=== PATIENT | female | born 1950 | race Caucasian/White ===

== ENCOUNTER 2019-06-20 14:17 | Emergency (ER) | payer MEDICARE, OTHER ==
[~2019-06-20] VITALS: Ht 160 cm; Wt 77.3 kg
[~2019-06-20 14:17] MED LIST: ARIP10TA8 PO; DOCU-342 PO; DULO30CA2 PO; EXEM25 PO; RIVA20TA PO
[2019-06-20] MEDS ORDERED: GABA-531 PO (15:33)
[2019-06-20] MEDS ORDERED: ATOR40TA28 PO (15:33)
[2019-06-20 16:07] LABS: BASOPHILS % (AUTO) 0.4 % (0.0-2.0); EOSINOPHILS % (AUTO) 0.6 % (1.0-6.0); HEMATOCRIT 46.8 % (36-46); HEMOGLOBIN 15.5 g/dL (12.0-16.0); LYMPHOCYTES # (AUTO) 1.4 K/uL (1.0-4.8); LYMPHOCYTES % (AUTO) 20.3 % (22.0-44.0); MEAN CORPUSCULAR HEMOGLOBIN 30.2 pg (26.0-34.0); MEAN CORPUSCULAR HGB CONC 33.1 G/dL (31.0-37.0); MEAN CORPUSCULAR VOLUME 91 fL (80-100); MONOCYTES # (AUTO) 0.4 K/uL (0.1-1.0); MONOCYTES % (AUTO) 5.8 % (2.0-9.0); NEUTROPHILS # (AUTO) 5.1 K/uL (1.8-7.7); NEUTROPHILS % (AUTO) 72.9 % (40.0-70.0); PLATELET COUNT (AUTO) 305 K/uL (150-450); RED BLOOD CELL COUNT(AUTO) 5.13 MIL/uL (4.00-5.20)
[2019-06-20 16:14] LABS: ANION GAP 9 mmol/L (8-16); CALCIUM, TOTAL 9.3 mg/dL (8.8-10.5); CARBON DIOXIDE 27 mmol/L (22-29); CHLORIDE 103 mmol/L (98-107); CREATININE 0.79 mg/dL (0.60-1.30); GLOMERULAR FILTR. RATE CALC > 60 mL/min (>60); GLUCOSE,RANDOM 142 mg/dL (70-110); POTASSIUM 3.9 mmol/L (3.5-5.1); SODIUM SERUM 139 mmol/L (136-145); UREA NITROGEN, BLOOD 13 mg/dL (7-18)
[2019-06-20 16:20] LABS: ALANINE AMINOTRANSFERASE 35 U/L (12-78); ALKALINE PHOSPHATASE 118 U/L (46-116); ASPARTATE AMINOTRANSFERASE 19 U/L (15-37); BILIRUBIN,TOTAL 0.4 mg/dL (0.1-1.0); TOTAL PROTEIN, SERUM 7.9 g/dL (6.4-8.2)
[2019-06-20] MEDS ORDERED: ZOLPIDEM TARTRATE 5 MG TABLET PO PRN (18:30)
[2019-06-20] MEDS ORDERED: TUBERCULIN, PURIFIED PROTEIN DERIVATIVE 5 TU/0.1 ML SYRINGE ID ONE (18:30)
[2019-06-20] MEDS ORDERED: ZOLPIDEM TARTRATE 10 MG TABLET PO PRN (18:30)
[2019-06-20] MEDS ORDERED: PROMETHAZINE HCL 25 MG TABLET PO PRN (18:30)
[2019-06-20] MEDS ORDERED: MAGNESIUM HYDROXIDE SUSPENSION 30 ML UDCUP PO PRN (18:30)
[2019-06-20] MEDS ORDERED: GuaiFENesin/D-METHORPHAN [SUGAR-FREE] 200-20MG/10 ML SYRUP UDCUP PO PRN (18:30)
[2019-06-20] MEDS ORDERED: LOPERAMIDE HCL 2 MG CAPSULE PO PRN (18:30)
[2019-06-20] MEDS ORDERED: LORazepam 1 MG TABLET PO PRN (18:30)
[2019-06-20] MEDS ORDERED: ACETAMINOPHEN 325 MG TABLET PO PRN (18:30)
[2019-06-20] MEDS ORDERED: MAG HYDROX/AL HYDROX/SIMETH ES 30 ML SUSPENSION UDCUP PO PRN (18:30)
[2019-06-20] MEDS ORDERED: OLANZapine 5 MG RAPDIS TABLET PO PRN (18:30)
[2019-06-20] MEDS ORDERED: THIAMINE HCL 100 MG TABLET PO SCH (21:00)
[2019-06-20] MEDS ORDERED: PREGABALIN 25 MG CAPSULE PO SCH (21:00)
[2019-06-20] MEDS ORDERED: OLANZapine 5 MG RAPDIS TABLET PO SCH (21:00)
[2019-06-21 00:30] VITALS: BP 112/71
[2019-06-21] MEDS ORDERED: FOLIC ACID 1 MG TABLET PO SCH (09:00)
[2019-06-21] MEDS ORDERED: MULTIVITAMINS WITH MINERALS, THERAPEUTIC TABLET PO SCH (09:00)
[2019-06-21] MEDS ORDERED: DULoxetine HCL 20 MG CAPSULE PO SCH (09:00)
== END 2019-06-21 01:30 | disposition short-term general hospital (02) ==
LOC: EMS 14:23
DX: R45.851 Suicidal ideations (principal); J45.909 Unspecified asthma, uncomplicated; K21.9 Gastro-esophageal reflux disease without esophagitis; G43.909 Migraine, unspecified, not intractable, without status migrainosus; Z88.0 Allergy status to penicillin; Z88.1 Allergy status to other antibiotic agents; Z88.8 Allergy status to other drugs, medicaments and biological substances
CPT/HCPCS: 80053; 85025; 99285; G0480

== ENCOUNTER 2019-07-27 12:06 | Inpatient (IN) | payer MEDICARE, MEDICAID ==
[~2019-07-27] VITALS: Ht 160 cm; Wt 78.0 kg
[~2019-07-27 12:06] MED LIST changes: -ARIP10TA8 PO; +ATOR40TA28 PO; -DULO30CA2 PO; -EXEM25 PO; +GABA-1181 PO
[2019-07-27] MEDS ORDERED: TUBERCULIN, PURIFIED PROTEIN DERIVATIVE 5 TU/0.1 ML SYRINGE ID ONE (14:15)
[2019-07-27] MEDS ORDERED: HALOPERIDOL 5 MG TABLET PO PRN (14:15)
[2019-07-27 14:53] VITALS: BP 113/83
[2019-07-27 16:34] VITALS: BP 112/75
[2019-07-27] MEDS ORDERED: PNEUMOCOCCAL VACCINE POLYVALENT 0.5 ML VIAL [PPSV23] IM ONE (17:15)
[2019-07-27] MEDS: GABAPENTIN 300 MG CAPSULE PO SCH (20:02)
[2019-07-27] MEDS: ATORVASTATIN CALCIUM 40 MG TABLET PO SCH (20:02)
[2019-07-27] MEDS: ALBUTEROL SULFATE HFA 90 MCG/PUFF 8 GM INHALER IH PRN (20:10)
[2019-07-27] MEDS: ZOLPIDEM TARTRATE 10 MG TABLET PO PRN (21:43)
[2019-07-28 01:00] VITALS: BP 107/60
[2019-07-28] MEDS: GABAPENTIN 300 MG CAPSULE PO SCH ×2 (06:18→17:20)
[2019-07-28 08:26] VITALS: BP 101/61
[2019-07-28 08:29] LABS: BASOPHILS % (AUTO) 0.6 % (0.0-2.0); EOSINOPHILS % (AUTO) 3.1 % (1.0-6.0); HEMATOCRIT 40.5 % (36-46); HEMOGLOBIN 13.4 g/dL (12.0-16.0); LYMPHOCYTES # (AUTO) 1.5 K/uL (1.0-4.8); MEAN CORPUSCULAR HGB CONC 33.2 G/dL (31.0-37.0); MEAN CORPUSCULAR VOLUME 90 fL (80-100); MONOCYTES # (AUTO) 0.5 K/uL (0.1-1.0); MONOCYTES % (AUTO) 10.4 % (2.0-9.0); NEUTROPHILS # (AUTO) 2.8 K/uL (1.8-7.7); NEUTROPHILS % (AUTO) 55.9 % (40.0-70.0); PLATELET COUNT (AUTO) 291 K/uL (150-450); RED BLOOD CELL COUNT(AUTO) 4.48 MIL/uL (4.00-5.20)
[2019-07-28 08:35] LABS: INR 1.1 (0.9-1.1); PROTHROMBIN TIME 11.5 SEC (9.4-11.6)
[2019-07-28] MEDS: BACITRACIN 28.4 GM OINTMENT TP SCH ×2 (08:35→17:20)
[2019-07-28] MEDS: OMEPRAZOLE 20 MG CAPSULE PO SCH (08:36)
[2019-07-28] MEDS: DICLOFENAC SODIUM 1% 100 GM GEL [2GM] TP SCH ×2 (08:36→17:20)
[2019-07-28] MEDS: CETIRIZINE HCL 10 MG TABLET PO SCH (08:36)
[2019-07-28 09:08] LABS: ALANINE AMINOTRANSFERASE 32 U/L (12-78); ALBUMIN 3.2 g/dL (3.4-5.0); ALKALINE PHOSPHATASE 105 U/L (46-116); ANION GAP 10 mmol/L (8-16); ASPARTATE AMINOTRANSFERASE 17 U/L (15-37); BILIRUBIN,TOTAL 0.4 mg/dL (0.1-1.0); CALCIUM, TOTAL 8.5 mg/dL (8.8-10.5); CARBON DIOXIDE 25 mmol/L (22-29); CHLORIDE 105 mmol/L (98-107); CREATININE 0.78 mg/dL (0.60-1.30); GLOMERULAR FILTR. RATE CALC > 60 mL/min (>60); GLUCOSE,RANDOM 92 mg/dL (70-110); POTASSIUM 3.7 mmol/L (3.5-5.1); SODIUM SERUM 140 mmol/L (136-145); TOTAL PROTEIN, SERUM 6.4 g/dL (6.4-8.2); UREA NITROGEN, BLOOD 16 mg/dL (7-18)
[2019-07-28 09:47] LABS: HEMOGLOBIN A1C 5.9 % (3.8-5.6)
[2019-07-28] MEDS: ALBUTEROL SULFATE HFA 90 MCG/PUFF 8 GM INHALER IH PRN (12:34)
[2019-07-28] MEDS: LORazepam 2 MG TABLET PO PRN (12:46)
[2019-07-28] MEDS: ESCITALOPRAM OXALATE 10 MG TABLET PO SCH (13:52)
[2019-07-28] MEDS: CHOLECALCIFEROL (VIT D3) 400 UNITS [10 MCG] TABLET PO SCH (13:52)
[2019-07-28 17:20] VITALS: BP 104/61
[2019-07-28] MEDS: RIVAROXABAN 20 MG TABLET PO SCH (17:20)
[2019-07-28] MEDS: ATORVASTATIN CALCIUM 40 MG TABLET PO SCH (20:24)
[2019-07-29 00:54] VITALS: BP 108/69
[2019-07-29 08:19] VITALS: BP 119/55
[2019-07-29] MEDS: OMEPRAZOLE 20 MG CAPSULE PO SCH (08:22)
[2019-07-29] MEDS: CHOLECALCIFEROL (VIT D3) 400 UNITS [10 MCG] TABLET PO SCH (08:22)
[2019-07-29] MEDS: ESCITALOPRAM OXALATE 10 MG TABLET PO SCH (08:22)
[2019-07-29] MEDS: CETIRIZINE HCL 10 MG TABLET PO SCH (08:22)
[2019-07-29] MEDS: GABAPENTIN 300 MG CAPSULE PO SCH ×2 (08:22→16:43)
[2019-07-29] MEDS: DICLOFENAC SODIUM 1% 100 GM GEL [2GM] TP SCH ×2 (08:28→16:43)
[2019-07-29] MEDS: BACITRACIN 28.4 GM OINTMENT TP SCH ×2 (08:28→16:43)
[2019-07-29] MEDS: ALBUTEROL SULFATE HFA 90 MCG/PUFF 8 GM INHALER IH PRN (14:38)
[2019-07-29 16:00] VITALS: BP 109/58
[2019-07-29] MEDS: RIVAROXABAN 20 MG TABLET PO SCH (16:42)
[2019-07-29] MEDS: OLANZapine 5 MG TABLET PO SCH (16:47)
[2019-07-29] MEDS: ATORVASTATIN CALCIUM 40 MG TABLET PO SCH (20:13)
[2019-07-29] MEDS: ZOLPIDEM TARTRATE 10 MG TABLET PO PRN (22:48)
[2019-07-30 00:53] VITALS: BP 107/63
[2019-07-30] MEDS: OLANZapine 5 MG TABLET PO SCH ×3 (09:00→16:40)
[2019-07-30] MEDS: CETIRIZINE HCL 10 MG TABLET PO SCH (09:56)
[2019-07-30] MEDS: CHOLECALCIFEROL (VIT D3) 400 UNITS [10 MCG] TABLET PO SCH (09:56)
[2019-07-30] MEDS: ESCITALOPRAM OXALATE 10 MG TABLET PO SCH (09:56)
[2019-07-30] MEDS: OMEPRAZOLE 20 MG CAPSULE PO SCH (09:57)
[2019-07-30] MEDS: DICLOFENAC SODIUM 1% 100 GM GEL [2GM] TP SCH ×2 (09:57→16:41)
[2019-07-30] MEDS: GABAPENTIN 300 MG CAPSULE PO SCH ×2 (09:57→16:40)
[2019-07-30] MEDS: MULTIVITAMINS WITH MINERALS, THERAPEUTIC TABLET PO SCH (09:57)
[2019-07-30] MEDS: BACITRACIN 28.4 GM OINTMENT TP SCH ×2 (09:57→16:41)
[2019-07-30 10:56] VITALS: BP 107/64
[2019-07-30] MEDS: ALBUTEROL SULFATE HFA 90 MCG/PUFF 8 GM INHALER IH PRN (11:27)
[2019-07-30] MEDS: RIVAROXABAN 20 MG TABLET PO SCH (16:40)
[2019-07-30] MEDS: ATORVASTATIN CALCIUM 40 MG TABLET PO SCH (20:04)
[2019-07-31 07:17] VITALS: BP 100/60
[2019-07-31 08:44] LABS: CHOL/HDL RATIO 3.4 (3.9-5.7)
[2019-07-31] MEDS: CETIRIZINE HCL 10 MG TABLET PO SCH (09:20)
[2019-07-31] MEDS: GABAPENTIN 300 MG CAPSULE PO SCH ×2 (09:20→16:36)
[2019-07-31] MEDS: CHOLECALCIFEROL (VIT D3) 400 UNITS [10 MCG] TABLET PO SCH (09:20)
[2019-07-31] MEDS: MULTIVITAMINS WITH MINERALS, THERAPEUTIC TABLET PO SCH (09:20)
[2019-07-31] MEDS: OMEPRAZOLE 20 MG CAPSULE PO SCH (09:20)
[2019-07-31] MEDS: ESCITALOPRAM OXALATE 10 MG TABLET PO SCH (09:20)
[2019-07-31] MEDS: OLANZapine 5 MG TABLET PO SCH ×2 (09:20→16:36)
[2019-07-31] MEDS: BACITRACIN 28.4 GM OINTMENT TP SCH ×2 (09:21→16:37)
[2019-07-31] MEDS: DICLOFENAC SODIUM 1% 100 GM GEL [2GM] TP SCH ×2 (09:21→16:37)
[2019-07-31 12:40] VITALS: BP 98/59
[2019-07-31] MEDS: RIVAROXABAN 20 MG TABLET PO SCH (16:36)
[2019-07-31] MEDS: ALBUTEROL SULFATE HFA 90 MCG/PUFF 8 GM INHALER IH PRN (17:40)
[2019-07-31 17:41] VITALS: BP 97/58
[2019-07-31] MEDS: ATORVASTATIN CALCIUM 40 MG TABLET PO SCH (20:18)
[2019-08-01] MEDS: ALBUTEROL SULFATE HFA 90 MCG/PUFF 8 GM INHALER IH PRN (06:48)
[2019-08-01 08:34] VITALS: BP 107/60
[2019-08-01] MEDS: OLANZapine 5 MG TABLET PO SCH (08:52)
[2019-08-01] MEDS: OMEPRAZOLE 20 MG CAPSULE PO SCH (08:52)
[2019-08-01] MEDS: CHOLECALCIFEROL (VIT D3) 400 UNITS [10 MCG] TABLET PO SCH (08:52)
[2019-08-01] MEDS: ESCITALOPRAM OXALATE 10 MG TABLET PO SCH (08:52)
[2019-08-01] MEDS: MULTIVITAMINS WITH MINERALS, THERAPEUTIC TABLET PO SCH (08:52)
[2019-08-01] MEDS: GABAPENTIN 300 MG CAPSULE PO SCH ×2 (08:53→17:06)
[2019-08-01] MEDS: CETIRIZINE HCL 10 MG TABLET PO SCH (08:53)
[2019-08-01] MEDS: DICLOFENAC SODIUM 1% 100 GM GEL [2GM] TP SCH ×2 (08:59→17:00)
[2019-08-01] MEDS: BACITRACIN 28.4 GM OINTMENT TP SCH ×2 (08:59→17:00)
[2019-08-01] MEDS ORDERED: ESCITALOPRAM OXALATE 10 MG TABLET PO ONE (10:15)
[2019-08-01] MEDS: RIVAROXABAN 20 MG TABLET PO SCH (17:07)
[2019-08-01] MEDS: ATORVASTATIN CALCIUM 40 MG TABLET PO SCH (21:05)
[2019-08-01] MEDS: OLANZapine 10 MG TABLET PO SCH (21:05)
[2019-08-01] MEDS: ZOLPIDEM TARTRATE 10 MG TABLET PO PRN (21:17)
[2019-08-02 05:00] VITALS: BP 106/62
[2019-08-02 08:30] VITALS: BP 100/57
[2019-08-02] MEDS: GABAPENTIN 300 MG CAPSULE PO SCH ×2 (08:36→16:49)
[2019-08-02] MEDS: MULTIVITAMINS WITH MINERALS, THERAPEUTIC TABLET PO SCH (08:36)
[2019-08-02] MEDS: CHOLECALCIFEROL (VIT D3) 400 UNITS [10 MCG] TABLET PO SCH (08:37)
[2019-08-02] MEDS: OMEPRAZOLE 20 MG CAPSULE PO SCH (08:37)
[2019-08-02] MEDS: CETIRIZINE HCL 10 MG TABLET PO SCH (08:37)
[2019-08-02] MEDS: OLANZapine 5 MG TABLET PO SCH (08:37)
[2019-08-02] MEDS: ESCITALOPRAM OXALATE 10 MG TABLET PO SCH (08:37)
[2019-08-02] MEDS: DICLOFENAC SODIUM 1% 100 GM GEL [2GM] TP SCH ×2 (10:05→17:30)
[2019-08-02] MEDS: BACITRACIN 28.4 GM OINTMENT TP SCH ×2 (10:06→17:30)
[2019-08-02] MEDS: RIVAROXABAN 20 MG TABLET PO SCH (16:49)
[2019-08-02] MEDS: ALBUTEROL SULFATE HFA 90 MCG/PUFF 8 GM INHALER IH PRN (17:56)
[2019-08-02] MEDS: ATORVASTATIN CALCIUM 40 MG TABLET PO SCH (20:57)
[2019-08-02] MEDS: OLANZapine 10 MG TABLET PO SCH (21:00)
[2019-08-03 05:30] VITALS: BP 101/60
[2019-08-03] MEDS: CETIRIZINE HCL 10 MG TABLET PO SCH (08:59)
[2019-08-03] MEDS: GABAPENTIN 300 MG CAPSULE PO SCH ×2 (09:00→16:36)
[2019-08-03] MEDS: MULTIVITAMINS WITH MINERALS, THERAPEUTIC TABLET PO SCH (09:00)
[2019-08-03] MEDS: CHOLECALCIFEROL (VIT D3) 400 UNITS [10 MCG] TABLET PO SCH (09:00)
[2019-08-03] MEDS: OLANZapine 5 MG TABLET PO SCH (09:00)
[2019-08-03] MEDS: ESCITALOPRAM OXALATE 10 MG TABLET PO SCH (09:00)
[2019-08-03] MEDS: OMEPRAZOLE 20 MG CAPSULE PO SCH (09:00)
[2019-08-03] MEDS: BACITRACIN 28.4 GM OINTMENT TP SCH ×2 (09:01→16:39)
[2019-08-03] MEDS: DICLOFENAC SODIUM 1% 100 GM GEL [2GM] TP SCH ×2 (09:02→16:39)
[2019-08-03] MEDS ORDERED: LOPERAMIDE HCL 2 MG CAPSULE PO PRN (09:30)
[2019-08-03] MEDS: ALBUTEROL SULFATE HFA 90 MCG/PUFF 8 GM INHALER IH PRN ×2 (09:49→15:58)
[2019-08-03] MEDS ORDERED: ACETAMINOPHEN 325 MG TABLET PO PRN (10:15)
[2019-08-03] MEDS: RIVAROXABAN 20 MG TABLET PO SCH (16:36)
[2019-08-03 18:35] VITALS: BP 109/69
[2019-08-03] MEDS: LORazepam 2 MG TABLET PO PRN (18:35)
[2019-08-03] MEDS: ATORVASTATIN CALCIUM 40 MG TABLET PO SCH (20:29)
[2019-08-03] MEDS: OLANZapine 10 MG TABLET PO SCH (20:39)
[2019-08-03] MEDS: ZOLPIDEM TARTRATE 10 MG TABLET PO PRN (20:39)
[2019-08-04] MEDS: OLANZapine 5 MG TABLET PO SCH (09:01)
[2019-08-04] MEDS: GABAPENTIN 300 MG CAPSULE PO SCH ×2 (09:01→16:42)
[2019-08-04] MEDS: ESCITALOPRAM OXALATE 10 MG TABLET PO SCH (09:01)
[2019-08-04] MEDS: MULTIVITAMINS WITH MINERALS, THERAPEUTIC TABLET PO SCH (09:02)
[2019-08-04] MEDS: CHOLECALCIFEROL (VIT D3) 400 UNITS [10 MCG] TABLET PO SCH (09:02)
[2019-08-04] MEDS: OMEPRAZOLE 20 MG CAPSULE PO SCH (09:02)
[2019-08-04] MEDS: CETIRIZINE HCL 10 MG TABLET PO SCH (09:03)
[2019-08-04] MEDS: BACITRACIN 28.4 GM OINTMENT TP SCH ×2 (09:05→16:42)
[2019-08-04] MEDS: DICLOFENAC SODIUM 1% 100 GM GEL [2GM] TP SCH ×2 (09:05→16:42)
[2019-08-04] MEDS: RIVAROXABAN 20 MG TABLET PO SCH (16:42)
[2019-08-04] MEDS: OLANZapine 10 MG TABLET PO SCH (21:10)
[2019-08-04] MEDS: ATORVASTATIN CALCIUM 40 MG TABLET PO SCH (21:10)
[2019-08-04] MEDS ORDERED: SIMETHICONE 80 MG CHEWABLE TABLET CHEW PRN (21:30)
[2019-08-04] MEDS: ALBUTEROL SULFATE HFA 90 MCG/PUFF 8 GM INHALER IH PRN (22:45)
[2019-08-05] MEDS: BACITRACIN 28.4 GM OINTMENT TP SCH ×2 (09:49→17:14)
[2019-08-05] MEDS: CETIRIZINE HCL 10 MG TABLET PO SCH (09:49)
[2019-08-05] MEDS: OLANZapine 5 MG TABLET PO SCH (09:49)
[2019-08-05] MEDS: ESCITALOPRAM OXALATE 10 MG TABLET PO SCH (09:49)
[2019-08-05] MEDS: MULTIVITAMINS WITH MINERALS, THERAPEUTIC TABLET PO SCH (09:49)
[2019-08-05] MEDS: OMEPRAZOLE 20 MG CAPSULE PO SCH (09:49)
[2019-08-05] MEDS: GABAPENTIN 300 MG CAPSULE PO SCH ×2 (09:49→16:34)
[2019-08-05] MEDS: CHOLECALCIFEROL (VIT D3) 400 UNITS [10 MCG] TABLET PO SCH (09:49)
[2019-08-05] MEDS: DICLOFENAC SODIUM 1% 100 GM GEL [2GM] TP SCH ×2 (09:50→17:14)
[2019-08-05] MEDS: ALBUTEROL SULFATE HFA 90 MCG/PUFF 8 GM INHALER IH PRN ×2 (12:06→17:44)
[2019-08-05] MEDS: RIVAROXABAN 20 MG TABLET PO SCH (16:33)
[2019-08-05] MEDS: OLANZapine 10 MG TABLET PO SCH (20:16)
[2019-08-05] MEDS: ATORVASTATIN CALCIUM 40 MG TABLET PO SCH (20:16)
[2019-08-06] MEDS: ZOLPIDEM TARTRATE 10 MG TABLET PO PRN (00:09)
[2019-08-06 01:57] VITALS: BP 102/67
[2019-08-06] MEDS: LORazepam 2 MG TABLET PO PRN (01:59)
[2019-08-06 08:46] VITALS: BP 119/56
[2019-08-06] MEDS: CETIRIZINE HCL 10 MG TABLET PO SCH (09:55)
[2019-08-06] MEDS: OMEPRAZOLE 20 MG CAPSULE PO SCH (09:56)
[2019-08-06] MEDS: CHOLECALCIFEROL (VIT D3) 400 UNITS [10 MCG] TABLET PO SCH (09:56)
[2019-08-06] MEDS: OLANZapine 5 MG TABLET PO SCH (09:56)
[2019-08-06] MEDS: GABAPENTIN 300 MG CAPSULE PO SCH ×2 (09:56→16:56)
[2019-08-06] MEDS: ESCITALOPRAM OXALATE 10 MG TABLET PO SCH (09:56)
[2019-08-06] MEDS: MULTIVITAMINS WITH MINERALS, THERAPEUTIC TABLET PO SCH (09:56)
[2019-08-06] MEDS: BACITRACIN 28.4 GM OINTMENT TP SCH ×2 (09:57→17:05)
[2019-08-06] MEDS: DICLOFENAC SODIUM 1% 100 GM GEL [2GM] TP SCH ×2 (09:57→17:06)
[2019-08-06] MEDS: RIVAROXABAN 20 MG TABLET PO SCH (16:56)
[2019-08-06 17:10] VITALS: BP 117/69
[2019-08-06] MEDS: OLANZapine 10 MG TABLET PO SCH (20:12)
[2019-08-06] MEDS: ATORVASTATIN CALCIUM 40 MG TABLET PO SCH (20:12)
[2019-08-07 06:07] VITALS: BP 126/79
[2019-08-07] MEDS: ALBUTEROL SULFATE HFA 90 MCG/PUFF 8 GM INHALER IH PRN ×2 (06:46→14:39)
[2019-08-07] MEDS: MULTIVITAMINS WITH MINERALS, THERAPEUTIC TABLET PO SCH (08:14)
[2019-08-07] MEDS: GABAPENTIN 300 MG CAPSULE PO SCH ×2 (08:15→16:18)
[2019-08-07] MEDS: CETIRIZINE HCL 10 MG TABLET PO SCH (08:15)
[2019-08-07] MEDS: CHOLECALCIFEROL (VIT D3) 400 UNITS [10 MCG] TABLET PO SCH (08:15)
[2019-08-07] MEDS: ESCITALOPRAM OXALATE 10 MG TABLET PO SCH (08:15)
[2019-08-07] MEDS: OMEPRAZOLE 20 MG CAPSULE PO SCH (08:15)
[2019-08-07] MEDS: OLANZapine 5 MG TABLET PO SCH (08:15)
[2019-08-07] MEDS: DICLOFENAC SODIUM 1% 100 GM GEL [2GM] TP SCH ×2 (08:17→16:19)
[2019-08-07] MEDS: RIVAROXABAN 20 MG TABLET PO SCH (16:18)
[2019-08-07] MEDS: LORazepam 2 MG TABLET PO PRN (17:50)
[2019-08-07] MEDS: ATORVASTATIN CALCIUM 40 MG TABLET PO SCH (20:05)
[2019-08-07] MEDS: OLANZapine 10 MG TABLET PO SCH (20:05)
[2019-08-08 02:21] VITALS: BP 120/77
[2019-08-08] MEDS: LORazepam 2 MG TABLET PO PRN (02:23)
[2019-08-08] MEDS: GABAPENTIN 300 MG CAPSULE PO SCH ×2 (09:07→17:18)
[2019-08-08] MEDS: MULTIVITAMINS WITH MINERALS, THERAPEUTIC TABLET PO SCH (09:07)
[2019-08-08] MEDS: OMEPRAZOLE 20 MG CAPSULE PO SCH (09:07)
[2019-08-08] MEDS: OLANZapine 5 MG TABLET PO SCH (09:07)
[2019-08-08] MEDS: CETIRIZINE HCL 10 MG TABLET PO SCH (09:07)
[2019-08-08] MEDS: ESCITALOPRAM OXALATE 10 MG TABLET PO SCH (09:07)
[2019-08-08] MEDS: DICLOFENAC SODIUM 1% 100 GM GEL [2GM] TP SCH ×2 (09:08→17:19)
[2019-08-08] MEDS: CHOLECALCIFEROL (VIT D3) 400 UNITS [10 MCG] TABLET PO SCH (09:10)
[2019-08-08] MEDS: ALBUTEROL SULFATE HFA 90 MCG/PUFF 8 GM INHALER IH PRN ×2 (14:41→20:28)
[2019-08-08 16:21] VITALS: BP 124/72
[2019-08-08] MEDS: RIVAROXABAN 20 MG TABLET PO SCH (17:18)
[2019-08-08] MEDS: OLANZapine 10 MG TABLET PO SCH (20:28)
[2019-08-08] MEDS: ATORVASTATIN CALCIUM 40 MG TABLET PO SCH (20:29)
[2019-08-09 00:24] VITALS: BP 127/76
[2019-08-09] MEDS: MULTIVITAMINS WITH MINERALS, THERAPEUTIC TABLET PO SCH (08:35)
[2019-08-09] MEDS: GABAPENTIN 300 MG CAPSULE PO SCH ×2 (08:35→16:31)
[2019-08-09] MEDS: ESCITALOPRAM OXALATE 10 MG TABLET PO SCH (08:35)
[2019-08-09] MEDS: CETIRIZINE HCL 10 MG TABLET PO SCH (08:36)
[2019-08-09] MEDS: OMEPRAZOLE 20 MG CAPSULE PO SCH (08:36)
[2019-08-09] MEDS: CHOLECALCIFEROL (VIT D3) 400 UNITS [10 MCG] TABLET PO SCH (08:37)
[2019-08-09] MEDS: DICLOFENAC SODIUM 1% 100 GM GEL [2GM] TP SCH ×2 (08:37→18:13)
[2019-08-09] MEDS: OLANZapine 5 MG TABLET PO SCH (08:40)
[2019-08-09] MEDS: ALBUTEROL SULFATE HFA 90 MCG/PUFF 8 GM INHALER IH PRN ×2 (09:42→21:18)
[2019-08-09] MEDS: RIVAROXABAN 20 MG TABLET PO SCH (16:31)
[2019-08-09 16:57] VITALS: BP 100/64
[2019-08-09] MEDS: ATORVASTATIN CALCIUM 40 MG TABLET PO SCH (20:43)
[2019-08-09] MEDS: OLANZapine 10 MG TABLET PO SCH (20:43)
[2019-08-09] MEDS: LORazepam 2 MG TABLET PO PRN (20:53)
[2019-08-10] MEDS: OMEPRAZOLE 20 MG CAPSULE PO SCH (08:57)
[2019-08-10] MEDS: GABAPENTIN 300 MG CAPSULE PO SCH (08:58)
[2019-08-10] MEDS: ESCITALOPRAM OXALATE 10 MG TABLET PO SCH (08:58)
[2019-08-10] MEDS: MULTIVITAMINS WITH MINERALS, THERAPEUTIC TABLET PO SCH (08:58)
[2019-08-10] MEDS: CHOLECALCIFEROL (VIT D3) 400 UNITS [10 MCG] TABLET PO SCH (08:58)
[2019-08-10] MEDS: CETIRIZINE HCL 10 MG TABLET PO SCH (08:58)
[2019-08-10] MEDS: OLANZapine 5 MG TABLET PO SCH (08:58)
[2019-08-10] MEDS: DICLOFENAC SODIUM 1% 100 GM GEL [2GM] TP SCH (08:59)
[2019-08-10 09:06] VITALS: BP 106/64
[2019-08-10] MEDS ORDERED: ESCI20TA87 PO (11:45)
[2019-08-10] MEDS ORDERED: OLAN5TAB2 PO ×2 (11:45)
[2019-08-10] MEDS ORDERED: GABA-1181 PO (11:46)
[2019-08-10] MEDS ORDERED: ATOR40TA28 PO (11:51)
[2019-08-10] MEDS ORDERED: CETI-450 PO (11:51)
[2019-08-10] MEDS ORDERED: CHOL400T56 PO (13:11)
[2019-08-10] MEDS ORDERED: OMEP20 PO (13:11)
== END 2019-08-10 18:28 | disposition home or self-care (01) | DRG 751 ==
LOC: B2S 14:51
PROVIDERS: ADMIT Psychiatry & Neurology Psychiatry; ATTEND Psychiatry & Neurology Psychiatry
DX: F33.2 Major depressive disorder, recurrent severe without psychotic features (principal); R45.851 Suicidal ideations; J44.9 Chronic obstructive pulmonary disease, unspecified; E78.5 Hyperlipidemia, unspecified; G43.909 Migraine, unspecified, not intractable, without status migrainosus; K21.9 Gastro-esophageal reflux disease without esophagitis; M19.90 Unspecified osteoarthritis, unspecified site; M54.30 Sciatica, unspecified side; M54.9 Dorsalgia, unspecified; R63.0 Anorexia; I25.10 Atherosclerotic heart disease of native coronary artery without angina pectoris; Z86.711 Personal history of pulmonary embolism; Z86.718 Personal history of other venous thrombosis and embolism; Z59.0 Homelessness; Z79.899 Other long term (current) drug therapy; Z85.3 Personal history of malignant neoplasm of breast; Z88.0 Allergy status to penicillin; Z90.11 Acquired absence of right breast and nipple; Z91.5 Personal history of self-harm; Z88.8 Allergy status to other drugs, medicaments and biological substances; Z88.1 Allergy status to other antibiotic agents
CPT/HCPCS: 83036; 83735; G0480; J3535

== ENCOUNTER 2019-08-18 00:15 | Inpatient (IN) | payer MEDICARE, MEDICAID ==
[~2019-08-18] VITALS: Ht 160 cm; Wt 80.2 kg
[~2019-08-18 00:15] MED LIST changes: +CETI-450 PO; +CHOL400T56 PO; -DOCU-342 PO; +ESCI20TA87 PO; +OLAN5TAB2 PO; +OMEP20 PO
[2019-08-18 00:56] LABS: BASOPHILS % (AUTO) 0.7 % (0.0-2.0); HEMATOCRIT 38.7 % (36-46); HEMOGLOBIN 13.4 g/dL (12.0-16.0); LYMPHOCYTES # (AUTO) 1.6 K/uL (1.0-4.8); LYMPHOCYTES % (AUTO) 20.4 % (22.0-44.0); MEAN CORPUSCULAR HEMOGLOBIN 31.2 pg (26.0-34.0); MEAN CORPUSCULAR HGB CONC 34.6 G/dL (31.0-37.0); MEAN CORPUSCULAR VOLUME 90 fL (80-100); MONOCYTES # (AUTO) 0.6 K/uL (0.1-1.0); MONOCYTES % (AUTO) 7.7 % (2.0-9.0); NEUTROPHILS # (AUTO) 5.4 K/uL (1.8-7.7); NEUTROPHILS % (AUTO) 69.2 % (40.0-70.0); PLATELET COUNT (AUTO) 298 K/uL (150-450); RED BLOOD CELL COUNT(AUTO) 4.29 MIL/uL (4.00-5.20); RED CELL DISTRIBUTION WIDTH 14.1 % (11.5-14.5)
[2019-08-18 01:07] LABS: ALANINE AMINOTRANSFERASE 60 U/L (12-78); ALBUMIN 3.6 g/dL (3.4-5.0); ALKALINE PHOSPHATASE 116 U/L (46-116); ANION GAP 12 mmol/L (8-16); ASPARTATE AMINOTRANSFERASE 28 U/L (15-37); BILIRUBIN,TOTAL 0.3 mg/dL (0.1-1.0); CALCIUM, TOTAL 8.3 mg/dL (8.8-10.5); CARBON DIOXIDE 21 mmol/L (22-29); CHLORIDE 106 mmol/L (98-107); CREATININE 0.64 mg/dL (0.60-1.30); GLOMERULAR FILTR. RATE CALC > 60 mL/min (>60); GLUCOSE,RANDOM 111 mg/dL (70-110); POTASSIUM 3.6 mmol/L (3.5-5.1); SODIUM SERUM 139 mmol/L (136-145); TOTAL PROTEIN, SERUM 7.2 g/dL (6.4-8.2)
[2019-08-18 01:13] LABS: UREA NITROGEN, BLOOD 18 mg/dL (7-18)
[2019-08-18] MEDS ORDERED: ZOLPIDEM TARTRATE 10 MG TABLET PO PRN (02:30)
[2019-08-18 05:44] VITALS: BP 138/70
[2019-08-18] MEDS ORDERED: PNEUMOCOCCAL VACCINE POLYVALENT 0.5 ML VIAL [PPSV23] IM ONE (06:30)
[2019-08-18] MEDS: LORazepam 2 MG TABLET PO PRN (10:06)
[2019-08-18] MEDS: OLANZapine 10 MG TABLET PO SCH ×2 (13:59→20:40)
[2019-08-18 16:26] VITALS: BP 101/57
[2019-08-18] MEDS: DICLOFENAC SODIUM 1% 100 GM GEL [4GM] TP SCH (17:12)
[2019-08-18] MEDS: GABAPENTIN 300 MG CAPSULE PO SCH (17:12)
[2019-08-18] MEDS: RIVAROXABAN 20 MG TABLET PO SCH (17:12)
[2019-08-18] MEDS: ATORVASTATIN CALCIUM 40 MG TABLET PO SCH (20:40)
[2019-08-19 04:04] VITALS: BP 130/77
[2019-08-19 08:18] VITALS: BP 125/70
[2019-08-19] MEDS: GABAPENTIN 300 MG CAPSULE PO SCH ×2 (08:26→17:06)
[2019-08-19] MEDS: CETIRIZINE HCL 10 MG TABLET PO SCH (08:26)
[2019-08-19] MEDS: ESCITALOPRAM OXALATE 20 MG TABLET PO SCH (08:26)
[2019-08-19] MEDS: MULTIVITAMINS, THERAPEUTIC TABLET PO SCH (08:26)
[2019-08-19] MEDS: OLANZapine 10 MG TABLET PO SCH ×2 (08:26→20:16)
[2019-08-19] MEDS: OMEPRAZOLE 20 MG CAPSULE PO SCH (08:26)
[2019-08-19] MEDS: CHOLECALCIFEROL (VIT D3) 400 UNITS [10 MCG] TABLET PO SCH (08:26)
[2019-08-19] MEDS: DICLOFENAC SODIUM 1% 100 GM GEL [4GM] TP SCH ×2 (08:27→17:06)
[2019-08-19 16:07] VITALS: BP 109/67
[2019-08-19] MEDS: ALBUTEROL SULFATE HFA 90 MCG/PUFF 8 GM INHALER IH PRN (16:35)
[2019-08-19] MEDS: RIVAROXABAN 20 MG TABLET PO SCH (17:06)
[2019-08-19] MEDS: ATORVASTATIN CALCIUM 40 MG TABLET PO SCH (20:16)
[2019-08-20 01:40] VITALS: BP 129/68
[2019-08-20] MEDS: CETIRIZINE HCL 10 MG TABLET PO SCH (08:25)
[2019-08-20] MEDS: ESCITALOPRAM OXALATE 20 MG TABLET PO SCH (08:26)
[2019-08-20] MEDS: GABAPENTIN 300 MG CAPSULE PO SCH ×2 (08:26→17:07)
[2019-08-20] MEDS: MULTIVITAMINS, THERAPEUTIC TABLET PO SCH (08:26)
[2019-08-20] MEDS: OMEPRAZOLE 20 MG CAPSULE PO SCH (08:26)
[2019-08-20] MEDS: DICLOFENAC SODIUM 1% 100 GM GEL [4GM] TP SCH ×2 (08:26→17:07)
[2019-08-20] MEDS: CHOLECALCIFEROL (VIT D3) 400 UNITS [10 MCG] TABLET PO SCH (08:26)
[2019-08-20] MEDS: OLANZapine 10 MG TABLET PO SCH ×2 (08:26→20:12)
[2019-08-20 10:12] VITALS: BP 112/55
[2019-08-20] MEDS: RIVAROXABAN 20 MG TABLET PO SCH (17:07)
[2019-08-20] MEDS: ATORVASTATIN CALCIUM 40 MG TABLET PO SCH (20:12)
[2019-08-21 06:03] VITALS: BP 116/62
[2019-08-21] MEDS: CHOLECALCIFEROL (VIT D3) 400 UNITS [10 MCG] TABLET PO SCH (08:09)
[2019-08-21] MEDS: CETIRIZINE HCL 10 MG TABLET PO SCH (08:09)
[2019-08-21] MEDS: ESCITALOPRAM OXALATE 20 MG TABLET PO SCH (08:10)
[2019-08-21] MEDS: OLANZapine 10 MG TABLET PO SCH ×2 (08:10→20:15)
[2019-08-21] MEDS: OMEPRAZOLE 20 MG CAPSULE PO SCH (08:10)
[2019-08-21] MEDS: MULTIVITAMINS, THERAPEUTIC TABLET PO SCH (08:10)
[2019-08-21] MEDS: GABAPENTIN 300 MG CAPSULE PO SCH ×2 (08:12→17:07)
[2019-08-21] MEDS: DICLOFENAC SODIUM 1% 100 GM GEL [4GM] TP SCH ×2 (08:13→20:15)
[2019-08-21] MEDS: ALBUTEROL SULFATE HFA 90 MCG/PUFF 8 GM INHALER IH PRN (08:13)
[2019-08-21] MEDS ORDERED: DICLOFENAC SODIUM 1% 100 GM GEL [4GM] TP SCH (09:00)
[2019-08-21] MEDS: RIVAROXABAN 20 MG TABLET PO SCH (17:07)
[2019-08-21] MEDS: ATORVASTATIN CALCIUM 40 MG TABLET PO SCH (20:15)
[2019-08-22 00:18] VITALS: BP 123/72
[2019-08-22] MEDS: MULTIVITAMINS, THERAPEUTIC TABLET PO SCH (08:26)
[2019-08-22] MEDS: GABAPENTIN 300 MG CAPSULE PO SCH ×2 (08:26→16:45)
[2019-08-22] MEDS: OMEPRAZOLE 20 MG CAPSULE PO SCH (08:26)
[2019-08-22] MEDS: CETIRIZINE HCL 10 MG TABLET PO SCH (08:26)
[2019-08-22] MEDS: OLANZapine 10 MG TABLET PO SCH ×2 (08:26→20:10)
[2019-08-22] MEDS: ALBUTEROL SULFATE HFA 90 MCG/PUFF 8 GM INHALER IH PRN ×2 (08:55→15:17)
[2019-08-22] MEDS: DICLOFENAC SODIUM 1% 100 GM GEL [4GM] TP SCH ×2 (09:16→20:10)
[2019-08-22] MEDS: CHOLECALCIFEROL (VIT D3) 400 UNITS [10 MCG] TABLET PO SCH (09:16)
[2019-08-22] MEDS: ESCITALOPRAM OXALATE 20 MG TABLET PO SCH (09:27)
[2019-08-22 16:43] VITALS: BP 98/57
[2019-08-22] MEDS: RIVAROXABAN 20 MG TABLET PO SCH (16:45)
[2019-08-22] MEDS: BACITRACIN 28.4 GM OINTMENT TP SCH (16:54)
[2019-08-22] MEDS: ATORVASTATIN CALCIUM 40 MG TABLET PO SCH (20:10)
[2019-08-23 08:16] VITALS: BP 116/70
[2019-08-23] MEDS: CHOLECALCIFEROL (VIT D3) 400 UNITS [10 MCG] TABLET PO SCH (08:45)
[2019-08-23] MEDS: OLANZapine 10 MG TABLET PO SCH ×2 (08:45→20:55)
[2019-08-23] MEDS: CETIRIZINE HCL 10 MG TABLET PO SCH (08:45)
[2019-08-23] MEDS: MULTIVITAMINS, THERAPEUTIC TABLET PO SCH (08:45)
[2019-08-23] MEDS: ESCITALOPRAM OXALATE 20 MG TABLET PO SCH (08:45)
[2019-08-23] MEDS: DICLOFENAC SODIUM 1% 100 GM GEL [4GM] TP SCH ×2 (08:46→20:54)
[2019-08-23] MEDS: GABAPENTIN 300 MG CAPSULE PO SCH ×2 (08:46→16:54)
[2019-08-23] MEDS: OMEPRAZOLE 20 MG CAPSULE PO SCH (08:46)
[2019-08-23] MEDS: BACITRACIN 28.4 GM OINTMENT TP SCH ×2 (08:49→16:54)
[2019-08-23] MEDS: RIVAROXABAN 20 MG TABLET PO SCH (16:54)
[2019-08-23] MEDS: ALBUTEROL SULFATE HFA 90 MCG/PUFF 8 GM INHALER IH PRN (18:38)
[2019-08-23] MEDS: ATORVASTATIN CALCIUM 40 MG TABLET PO SCH (20:54)
[2019-08-24] MEDS: ALBUTEROL SULFATE HFA 90 MCG/PUFF 8 GM INHALER IH PRN ×3 (05:45→17:36)
[2019-08-24 06:46] VITALS: BP 120/84
[2019-08-24] MEDS: CHOLECALCIFEROL (VIT D3) 400 UNITS [10 MCG] TABLET PO SCH (08:10)
[2019-08-24] MEDS: ESCITALOPRAM OXALATE 20 MG TABLET PO SCH (08:10)
[2019-08-24] MEDS: GABAPENTIN 300 MG CAPSULE PO SCH ×2 (08:10→16:35)
[2019-08-24] MEDS: OMEPRAZOLE 20 MG CAPSULE PO SCH (08:10)
[2019-08-24] MEDS: MULTIVITAMINS, THERAPEUTIC TABLET PO SCH (08:10)
[2019-08-24] MEDS: BACITRACIN 28.4 GM OINTMENT TP SCH ×2 (08:11→17:52)
[2019-08-24] MEDS: DICLOFENAC SODIUM 1% 100 GM GEL [4GM] TP SCH ×2 (08:12→20:35)
[2019-08-24 08:18] VITALS: BP 117/68
[2019-08-24] MEDS: CETIRIZINE HCL 10 MG TABLET PO SCH (08:27)
[2019-08-24] MEDS: OLANZapine 10 MG TABLET PO SCH (08:27)
[2019-08-24 16:09] VITALS: BP 106/69
[2019-08-24] MEDS: RIVAROXABAN 20 MG TABLET PO SCH (16:35)
[2019-08-24] MEDS: ATORVASTATIN CALCIUM 40 MG TABLET PO SCH (20:35)
[2019-08-24] MEDS: OLANZapine 5 MG TABLET PO SCH (20:35)
[2019-08-25 01:07] VITALS: BP 141/79
[2019-08-25] MEDS: CHOLECALCIFEROL (VIT D3) 400 UNITS [10 MCG] TABLET PO SCH (08:19)
[2019-08-25] MEDS: CETIRIZINE HCL 10 MG TABLET PO SCH (08:19)
[2019-08-25] MEDS: ESCITALOPRAM OXALATE 20 MG TABLET PO SCH (08:19)
[2019-08-25] MEDS: OMEPRAZOLE 20 MG CAPSULE PO SCH (08:19)
[2019-08-25] MEDS: MULTIVITAMINS, THERAPEUTIC TABLET PO SCH (08:19)
[2019-08-25] MEDS: GABAPENTIN 300 MG CAPSULE PO SCH ×2 (08:19→16:35)
[2019-08-25] MEDS: OLANZapine 5 MG TABLET PO SCH ×2 (08:29→20:52)
[2019-08-25] MEDS: BACITRACIN 28.4 GM OINTMENT TP SCH ×2 (08:29→17:59)
[2019-08-25] MEDS: DICLOFENAC SODIUM 1% 100 GM GEL [4GM] TP SCH ×2 (08:29→20:58)
[2019-08-25] MEDS: ALBUTEROL SULFATE HFA 90 MCG/PUFF 8 GM INHALER IH PRN (08:38)
[2019-08-25 16:29] VITALS: BP 105/71
[2019-08-25] MEDS: RIVAROXABAN 20 MG TABLET PO SCH (16:35)
[2019-08-25] MEDS: ATORVASTATIN CALCIUM 40 MG TABLET PO SCH (20:52)
[2019-08-25] MEDS: LORazepam 2 MG TABLET PO PRN (22:46)
[2019-08-26 00:07] VITALS: BP 110/80
[2019-08-26] MEDS: MULTIVITAMINS, THERAPEUTIC TABLET PO SCH (08:07)
[2019-08-26] MEDS: OMEPRAZOLE 20 MG CAPSULE PO SCH (08:07)
[2019-08-26] MEDS: OLANZapine 5 MG TABLET PO SCH (08:07)
[2019-08-26] MEDS: DICLOFENAC SODIUM 1% 100 GM GEL [4GM] TP SCH ×2 (08:07→21:06)
[2019-08-26] MEDS: BACITRACIN 28.4 GM OINTMENT TP SCH ×2 (08:07→17:06)
[2019-08-26] MEDS: CHOLECALCIFEROL (VIT D3) 400 UNITS [10 MCG] TABLET PO SCH (08:07)
[2019-08-26] MEDS: ESCITALOPRAM OXALATE 20 MG TABLET PO SCH (08:07)
[2019-08-26] MEDS: CETIRIZINE HCL 10 MG TABLET PO SCH (08:07)
[2019-08-26] MEDS: GABAPENTIN 300 MG CAPSULE PO SCH ×2 (08:07→17:06)
[2019-08-26 09:00] VITALS: BP 102/55
[2019-08-26] MEDS: ALBUTEROL SULFATE HFA 90 MCG/PUFF 8 GM INHALER IH PRN (15:07)
[2019-08-26] MEDS: LORazepam 2 MG TABLET PO PRN (16:01)
[2019-08-26 16:45] VITALS: BP 98/61
[2019-08-26] MEDS: RIVAROXABAN 20 MG TABLET PO SCH (17:07)
[2019-08-26] MEDS: OLANZapine 10 MG TABLET PO SCH (21:04)
[2019-08-26] MEDS: ATORVASTATIN CALCIUM 40 MG TABLET PO SCH (21:04)
[2019-08-27] MEDS: CHOLECALCIFEROL (VIT D3) 400 UNITS [10 MCG] TABLET PO SCH (08:05)
[2019-08-27] MEDS: CETIRIZINE HCL 10 MG TABLET PO SCH (08:05)
[2019-08-27] MEDS: ESCITALOPRAM OXALATE 20 MG TABLET PO SCH (08:05)
[2019-08-27] MEDS: BACITRACIN 28.4 GM OINTMENT TP SCH ×2 (08:06→17:00)
[2019-08-27] MEDS: GABAPENTIN 300 MG CAPSULE PO SCH ×2 (08:06→17:03)
[2019-08-27] MEDS: OMEPRAZOLE 20 MG CAPSULE PO SCH (08:06)
[2019-08-27] MEDS: DICLOFENAC SODIUM 1% 100 GM GEL [4GM] TP SCH ×2 (08:06→20:20)
[2019-08-27] MEDS: MULTIVITAMINS, THERAPEUTIC TABLET PO SCH (08:06)
[2019-08-27] MEDS: ALBUTEROL SULFATE HFA 90 MCG/PUFF 8 GM INHALER IH PRN ×2 (08:11→17:10)
[2019-08-27] MEDS: LORazepam 2 MG TABLET PO PRN (09:23)
[2019-08-27 09:29] VITALS: BP 113/68
[2019-08-27] MEDS ORDERED: LOPERAMIDE HCL 2 MG CAPSULE PO PRN (14:00)
[2019-08-27 16:00] VITALS: BP 118/70
[2019-08-27] MEDS: RIVAROXABAN 20 MG TABLET PO SCH (17:03)
[2019-08-27] MEDS: ATORVASTATIN CALCIUM 40 MG TABLET PO SCH (20:16)
[2019-08-27] MEDS: OLANZapine 10 MG TABLET PO SCH (20:16)
[2019-08-28 01:03] VITALS: BP 102/64
[2019-08-28] MEDS: CHOLECALCIFEROL (VIT D3) 400 UNITS [10 MCG] TABLET PO SCH (08:17)
[2019-08-28] MEDS: CETIRIZINE HCL 10 MG TABLET PO SCH (08:17)
[2019-08-28] MEDS: OMEPRAZOLE 20 MG CAPSULE PO SCH (08:18)
[2019-08-28] MEDS: ESCITALOPRAM OXALATE 20 MG TABLET PO SCH (08:18)
[2019-08-28] MEDS: MULTIVITAMINS, THERAPEUTIC TABLET PO SCH (08:18)
[2019-08-28] MEDS: DICLOFENAC SODIUM 1% 100 GM GEL [4GM] TP SCH ×2 (08:18→20:05)
[2019-08-28] MEDS: GABAPENTIN 300 MG CAPSULE PO SCH ×2 (08:18→17:11)
[2019-08-28] MEDS: BACITRACIN 28.4 GM OINTMENT TP SCH ×2 (08:24→17:15)
[2019-08-28 08:35] VITALS: BP 102/62
[2019-08-28] MEDS: ALBUTEROL SULFATE HFA 90 MCG/PUFF 8 GM INHALER IH PRN ×4 (08:41→22:16)
[2019-08-28 16:27] VITALS: BP 104/59
[2019-08-28] MEDS: RIVAROXABAN 20 MG TABLET PO SCH (17:11)
[2019-08-28] MEDS: ATORVASTATIN CALCIUM 40 MG TABLET PO SCH (20:05)
[2019-08-28] MEDS: OLANZapine 10 MG TABLET PO SCH (20:05)
[2019-08-29 01:04] VITALS: BP 114/62
[2019-08-29] MEDS: OMEPRAZOLE 20 MG CAPSULE PO SCH (08:05)
[2019-08-29] MEDS: CETIRIZINE HCL 10 MG TABLET PO SCH (08:05)
[2019-08-29] MEDS: GABAPENTIN 300 MG CAPSULE PO SCH ×2 (08:06→16:47)
[2019-08-29] MEDS: DICLOFENAC SODIUM 1% 100 GM GEL [4GM] TP SCH ×2 (08:06→20:34)
[2019-08-29] MEDS: ESCITALOPRAM OXALATE 20 MG TABLET PO SCH (08:06)
[2019-08-29] MEDS: MULTIVITAMINS, THERAPEUTIC TABLET PO SCH (08:06)
[2019-08-29] MEDS: CHOLECALCIFEROL (VIT D3) 400 UNITS [10 MCG] TABLET PO SCH (08:06)
[2019-08-29] MEDS: BACITRACIN 28.4 GM OINTMENT TP SCH ×2 (08:07→16:47)
[2019-08-29 08:17] VITALS: BP 103/62
[2019-08-29] MEDS: OLANZapine 5 MG RAPDIS TABLET PO PRN ×2 (09:25→18:29)
[2019-08-29] MEDS: ALBUTEROL SULFATE HFA 90 MCG/PUFF 8 GM INHALER IH PRN (16:30)
[2019-08-29] MEDS: RIVAROXABAN 20 MG TABLET PO SCH (16:47)
[2019-08-29] MEDS: OLANZapine 10 MG TABLET PO SCH (20:34)
[2019-08-29] MEDS: ATORVASTATIN CALCIUM 40 MG TABLET PO SCH (20:34)
[2019-08-30 05:31] VITALS: BP 100/68
[2019-08-30] MEDS: OMEPRAZOLE 20 MG CAPSULE PO SCH (08:19)
[2019-08-30] MEDS: MULTIVITAMINS, THERAPEUTIC TABLET PO SCH (08:19)
[2019-08-30] MEDS: GABAPENTIN 300 MG CAPSULE PO SCH ×2 (08:19→16:40)
[2019-08-30] MEDS: CHOLECALCIFEROL (VIT D3) 400 UNITS [10 MCG] TABLET PO SCH (08:20)
[2019-08-30] MEDS: BACITRACIN 28.4 GM OINTMENT TP SCH ×2 (08:20→16:47)
[2019-08-30] MEDS: DICLOFENAC SODIUM 1% 100 GM GEL [4GM] TP SCH ×2 (08:20→20:29)
[2019-08-30] MEDS: CETIRIZINE HCL 10 MG TABLET PO SCH (08:20)
[2019-08-30] MEDS: ESCITALOPRAM OXALATE 20 MG TABLET PO SCH (08:22)
[2019-08-30 08:26] VITALS: BP 100/60
[2019-08-30] MEDS: RIVAROXABAN 20 MG TABLET PO SCH (16:40)
[2019-08-30] MEDS: OLANZapine 5 MG RAPDIS TABLET PO PRN (18:04)
[2019-08-30] MEDS: ALBUTEROL SULFATE HFA 90 MCG/PUFF 8 GM INHALER IH PRN (18:05)
[2019-08-30] MEDS: OLANZapine 10 MG TABLET PO SCH (20:29)
[2019-08-30] MEDS: ATORVASTATIN CALCIUM 40 MG TABLET PO SCH (20:29)
[2019-08-31 08:06] VITALS: BP 108/61
[2019-08-31] MEDS: CETIRIZINE HCL 10 MG TABLET PO SCH (08:25)
[2019-08-31] MEDS: CHOLECALCIFEROL (VIT D3) 400 UNITS [10 MCG] TABLET PO SCH (08:26)
[2019-08-31] MEDS: ESCITALOPRAM OXALATE 20 MG TABLET PO SCH (08:26)
[2019-08-31] MEDS: GABAPENTIN 300 MG CAPSULE PO SCH ×2 (08:26→16:50)
[2019-08-31] MEDS: MULTIVITAMINS, THERAPEUTIC TABLET PO SCH (08:26)
[2019-08-31] MEDS: OMEPRAZOLE 20 MG CAPSULE PO SCH (08:26)
[2019-08-31] MEDS: DICLOFENAC SODIUM 1% 100 GM GEL [4GM] TP SCH ×2 (08:27→21:38)
[2019-08-31] MEDS: BACITRACIN 28.4 GM OINTMENT TP SCH ×2 (08:28→16:55)
[2019-08-31] MEDS: ALBUTEROL SULFATE HFA 90 MCG/PUFF 8 GM INHALER IH PRN ×2 (13:13→20:08)
[2019-08-31 16:00] VITALS: BP 105/60
[2019-08-31] MEDS: RIVAROXABAN 20 MG TABLET PO SCH (16:50)
[2019-08-31] MEDS: OLANZapine 10 MG TABLET PO SCH (21:38)
[2019-08-31] MEDS: ATORVASTATIN CALCIUM 40 MG TABLET PO SCH (21:38)
[2019-09-01 00:28] VITALS: BP 110/70
[2019-09-01] MEDS: OLANZapine 5 MG RAPDIS TABLET PO PRN (00:30)
[2019-09-01] MEDS: ALBUTEROL SULFATE HFA 90 MCG/PUFF 8 GM INHALER IH PRN ×4 (00:31→21:54)
[2019-09-01] MEDS: BACITRACIN 28.4 GM OINTMENT TP SCH (09:00)
[2019-09-01] MEDS: OMEPRAZOLE 20 MG CAPSULE PO SCH (09:57)
[2019-09-01] MEDS: CETIRIZINE HCL 10 MG TABLET PO SCH (09:57)
[2019-09-01] MEDS: ESCITALOPRAM OXALATE 20 MG TABLET PO SCH (09:57)
[2019-09-01] MEDS: MULTIVITAMINS, THERAPEUTIC TABLET PO SCH (09:57)
[2019-09-01] MEDS: CHOLECALCIFEROL (VIT D3) 400 UNITS [10 MCG] TABLET PO SCH (09:57)
[2019-09-01] MEDS: GABAPENTIN 300 MG CAPSULE PO SCH ×2 (09:57→17:30)
[2019-09-01] MEDS: DICLOFENAC SODIUM 1% 100 GM GEL [4GM] TP SCH ×2 (09:59→21:27)
[2019-09-01] MEDS: RIVAROXABAN 20 MG TABLET PO SCH (18:59)
[2019-09-01] MEDS: ACETAMINOPHEN 325 MG TABLET PO PRN (19:24)
[2019-09-01 19:50] VITALS: BP 92/60
[2019-09-01] MEDS: OLANZapine 10 MG TABLET PO SCH (21:25)
[2019-09-01] MEDS: ATORVASTATIN CALCIUM 40 MG TABLET PO SCH (21:25)
[2019-09-02 04:00] VITALS: BP 116/69
[2019-09-02] MEDS: CETIRIZINE HCL 10 MG TABLET PO SCH (08:33)
[2019-09-02] MEDS: CHOLECALCIFEROL (VIT D3) 400 UNITS [10 MCG] TABLET PO SCH (08:33)
[2019-09-02] MEDS: OMEPRAZOLE 20 MG CAPSULE PO SCH (08:34)
[2019-09-02] MEDS: BuPROPion HCL XL 150 MG ER TABLET PO SCH (08:34)
[2019-09-02] MEDS: MULTIVITAMINS, THERAPEUTIC TABLET PO SCH (08:34)
[2019-09-02] MEDS: ESCITALOPRAM OXALATE 20 MG TABLET PO SCH (08:34)
[2019-09-02] MEDS: GABAPENTIN 300 MG CAPSULE PO SCH ×2 (08:34→16:49)
[2019-09-02] MEDS: DICLOFENAC SODIUM 1% 100 GM GEL [4GM] TP SCH ×2 (08:37→21:21)
[2019-09-02] MEDS: ALBUTEROL SULFATE HFA 90 MCG/PUFF 8 GM INHALER IH PRN ×2 (08:40→15:30)
[2019-09-02 16:24] VITALS: BP 96/54
[2019-09-02] MEDS: RIVAROXABAN 20 MG TABLET PO SCH (16:49)
[2019-09-02] MEDS: OLANZapine 5 MG RAPDIS TABLET PO PRN (19:58)
[2019-09-02] MEDS: OLANZapine 10 MG TABLET PO SCH (21:20)
[2019-09-02] MEDS: ATORVASTATIN CALCIUM 40 MG TABLET PO SCH (21:20)
[2019-09-03 00:43] VITALS: BP 107/63
[2019-09-03] MEDS: ESCITALOPRAM OXALATE 20 MG TABLET PO SCH (08:17)
[2019-09-03] MEDS: MULTIVITAMINS, THERAPEUTIC TABLET PO SCH (08:17)
[2019-09-03] MEDS: BuPROPion HCL XL 150 MG ER TABLET PO SCH (08:17)
[2019-09-03] MEDS: GABAPENTIN 300 MG CAPSULE PO SCH ×2 (08:17→17:26)
[2019-09-03] MEDS: OMEPRAZOLE 20 MG CAPSULE PO SCH (08:17)
[2019-09-03] MEDS: CETIRIZINE HCL 10 MG TABLET PO SCH (08:18)
[2019-09-03] MEDS: CHOLECALCIFEROL (VIT D3) 400 UNITS [10 MCG] TABLET PO SCH (08:18)
[2019-09-03] MEDS: DICLOFENAC SODIUM 1% 100 GM GEL [4GM] TP SCH ×2 (08:19→20:48)
[2019-09-03 09:40] VITALS: BP 113/61
[2019-09-03] MEDS: ALBUTEROL SULFATE HFA 90 MCG/PUFF 8 GM INHALER IH PRN ×3 (11:10→20:48)
[2019-09-03] MEDS: RIVAROXABAN 20 MG TABLET PO SCH (17:26)
[2019-09-03] MEDS: OLANZapine 5 MG RAPDIS TABLET PO PRN (19:01)
[2019-09-03] MEDS: ATORVASTATIN CALCIUM 40 MG TABLET PO SCH (20:44)
[2019-09-03] MEDS: OLANZapine 10 MG TABLET PO SCH (20:44)
[2019-09-04] MEDS: MULTIVITAMINS, THERAPEUTIC TABLET PO SCH (08:19)
[2019-09-04] MEDS: CHOLECALCIFEROL (VIT D3) 400 UNITS [10 MCG] TABLET PO SCH (08:19)
[2019-09-04] MEDS: CETIRIZINE HCL 10 MG TABLET PO SCH (08:19)
[2019-09-04] MEDS: ESCITALOPRAM OXALATE 20 MG TABLET PO SCH (08:19)
[2019-09-04] MEDS: OMEPRAZOLE 20 MG CAPSULE PO SCH (08:19)
[2019-09-04] MEDS: BuPROPion HCL XL 150 MG ER TABLET PO SCH (08:20)
[2019-09-04] MEDS: GABAPENTIN 300 MG CAPSULE PO SCH ×2 (08:20→17:30)
[2019-09-04] MEDS: DICLOFENAC SODIUM 1% 100 GM GEL [4GM] TP SCH ×2 (08:20→20:11)
[2019-09-04] MEDS: ALBUTEROL SULFATE HFA 90 MCG/PUFF 8 GM INHALER IH PRN ×2 (10:38→15:36)
[2019-09-04 10:58] VITALS: BP 110/68
[2019-09-04] MEDS: RIVAROXABAN 20 MG TABLET PO SCH (17:29)
[2019-09-04] MEDS: OLANZapine 10 MG TABLET PO SCH (20:11)
[2019-09-04] MEDS: ACETAMINOPHEN 325 MG TABLET PO PRN (20:11)
[2019-09-04] MEDS: ATORVASTATIN CALCIUM 40 MG TABLET PO SCH (20:11)
[2019-09-05 08:20] VITALS: BP 115/68
[2019-09-05] MEDS: ESCITALOPRAM OXALATE 20 MG TABLET PO SCH (09:01)
[2019-09-05] MEDS: CETIRIZINE HCL 10 MG TABLET PO SCH (09:01)
[2019-09-05] MEDS: CHOLECALCIFEROL (VIT D3) 400 UNITS [10 MCG] TABLET PO SCH (09:01)
[2019-09-05] MEDS: MULTIVITAMINS, THERAPEUTIC TABLET PO SCH (09:01)
[2019-09-05] MEDS: BuPROPion HCL XL 150 MG ER TABLET PO SCH (09:01)
[2019-09-05] MEDS: OMEPRAZOLE 20 MG CAPSULE PO SCH (09:02)
[2019-09-05] MEDS: GABAPENTIN 300 MG CAPSULE PO SCH ×2 (09:03→17:11)
[2019-09-05] MEDS: DICLOFENAC SODIUM 1% 100 GM GEL [4GM] TP SCH ×2 (09:05→21:00)
[2019-09-05] MEDS: BENZOCAINE/MENTHOL LOZENGE [6 LOZENGES/PACKET] PO PRN ×3 (09:34→16:10)
[2019-09-05] MEDS: ALBUTEROL SULFATE HFA 90 MCG/PUFF 8 GM INHALER IH PRN ×2 (09:34→16:11)
[2019-09-05] MEDS: ACETAMINOPHEN 325 MG TABLET PO PRN (12:30)
[2019-09-05] MEDS: RIVAROXABAN 20 MG TABLET PO SCH (17:11)
[2019-09-05 17:38] VITALS: BP 110/64
[2019-09-05] MEDS: ATORVASTATIN CALCIUM 40 MG TABLET PO SCH (21:00)
[2019-09-05] MEDS: OLANZapine 10 MG TABLET PO SCH (21:00)
== END 2019-09-05 23:00 | disposition short-term general hospital (02) | DRG 885 ==
LOC: EMS 00:16 → B2S 02:30
PROVIDERS: ADMIT Psychiatry & Neurology Psychiatry; ATTEND Psychiatry & Neurology Psychiatry
DX: F25.1 Schizoaffective disorder, depressive type (principal); R45.851 Suicidal ideations; J45.909 Unspecified asthma, uncomplicated; I89.0 Lymphedema, not elsewhere classified; M54.30 Sciatica, unspecified side; F41.0 Panic disorder [episodic paroxysmal anxiety]; G43.909 Migraine, unspecified, not intractable, without status migrainosus; K21.9 Gastro-esophageal reflux disease without esophagitis; K58.9 Irritable bowel syndrome, unspecified; Z88.8 Allergy status to other drugs, medicaments and biological substances; Z88.1 Allergy status to other antibiotic agents; Z59.0 Homelessness; Z91.14 Patient's other noncompliance with medication regimen; Z91.040 Latex allergy status; Z88.5 Allergy status to narcotic agent
CPT/HCPCS: 83036; 87081; G0480; J3535